=== PATIENT | male | born 1995 | race African-American/Black ===

== ENCOUNTER 2016-10-23 10:58 | Emergency (ER) | payer SELFPAY ==
[~2016-10-23] VITALS: Ht 180.3 cm; Wt 100.0 kg
[~2016-10-23 10:58] MED LIST: PENI500T PO
[2016-10-23 10:59] VITALS: BP 139/70; PULSE 88; RESP 20; TEMP 98.1; O2SAT 97
--- NOTE | 2016-10-23 11:24 | PD ---
HPI Chief Complaint: ENT Complaint Time Seen by Provider: 11:22 Travel History International Travel<30 days: No Contact w/Intl Traveler<30days: No Traveled to known affect area: No History of Present Illness HPI 21-year-old male presents to the emergency department stating that he may have contracted in his right ear. He states he feels some slight pressure in his right ear. He does state that he uses Q-tips this does not recall if any of the Q-tip got stuck in his ear. The patient denies any pain or drainage. No fevers or chills. Patient denies any other complaints at this time. He has no chronic medical problems and takes no prescribed medications. History Social History Alcohol Use: Yes Tobacco Use: Yes Allergies-Medications (Allergen,Severity, Reaction): Coded Allergies: No Known Allergies (Unverified , 10/23/16) Reported Meds & Prescriptions Reported Meds & Active Scripts Active Penicillin V Potassium 500 Mg Tab 500 Mg PO Q8H 10 Days Review of Systems Except as stated in HPI: all other systems reviewed are Neg Physical Exam Narrative GENERAL: Well-developed well-nourished male patient, ambulatory. Afebrile. SKIN: Warm and dry. HEAD: Normocephalic. Atraumatic. ENT: Mucosa pink and moist. No erythema or exudates. No uvular edema. No uvular , palatal, or tonsillar deviation. Airway patent. Nasal turbinates appear normal without nasal blood, purulent drainage or septal hematoma. Bilateral tympanic membranes are clear without erythema or perforation. EYES: No scleral icterus. No injection or drainage. NECK: Supple, trachea midline. No JVD or lymphadenopathy. CARDIOVASCULAR: Regular rate and rhythm without murmurs, gallops, or rubs. RESPIRATORY: Breath sounds equal bilaterally. No accessory muscle use. Lungs sounds are clear to auscultation. MUSCULOSKELETAL: No cyanosis, or edema. Data Data Last Documented VS Vital Signs Date Time Temp Pulse Resp B/P Pulse Ox O2 Delivery O2 Flow Rate FiO2 10/23/16 10:59 98.1 88 20 139/70 97 Room Air MDM Medical Screen Exam Complete: Yes Emergency Medical Condition: No Differential Diagnosis Normal exam Narrative Course 21-year-old male presents to the emergency department believing he may have, and in his right ear. However, upon physical exam, bilateral ear canals and tympanic membranes are clear. There is no evidence of foreign body. I reassured the patient that there is no foreign body in his right ear. He verbalizes understanding. No emergent condition is identified on today's exam. A medical screening exam was performed: At the time of evaluation the presenting medical condition was determined not to be of an emergent nature. The patient was given the option of receiving additional care, but declined. Patient was given options for additional community resources from which to obtain care. The Patient Has Been advised to seek medical attention for their presenting complaint. The patient has been advised to return to the ER at any time if an emergent condition develops. Primary Impression: Encounter for medical screening examination Condition: Stable JohanSendy ELIU Oct 23, 2016 11:24
== END 2016-10-23 11:30 | disposition left against medical advice (07) ==
LOC: NEPB 10:58
DX: H92.01 Otalgia, right ear (principal)
CPT/HCPCS: 99281

== ENCOUNTER 2017-07-01 14:14 | Emergency (ER) | payer OTHER ==
[~2017-07-01] VITALS: Ht 180.3 cm; Wt 113.5 kg
[2017-07-01 14:16] VITALS: BP 137/80; PULSE 47; RESP 14; TEMP 98.4; O2SAT 98
--- NOTE | 2017-07-01 14:22 | PD ---
Physical Exam Date Seen by Provider: Jul 01, 2017 Time Seen by Provider: 14:20 Narrative 22-year-old Afro-[place] male presents to emergency Department with sudden onset nausea and vomiting since 11:00 last night. Patient states "he can't keep down". Patient is complaining of abdominal pain of 8 out of 10. He states decreased urinary output and generalized weakness and mild dizziness. He denies fever or chills. No diarrhea. No known drug allergies Vital signs are stable. Patient is awaiting medical placement. Data Data Last Documented VS Vital Signs Date Time Temp Pulse Resp B/P (MAP) Pulse Ox O2 Delivery O2 Flow Rate FiO2 07/01/17 14:16 98.4 47 14 137/80 (99) 98 MDM Medical Record Reviewed: Yes Supervised Visit with KASSY: Yes Condition: Stable Yeison Reilly Jul 01, 2017 14:21
[2017-07-01 15:21] LABS: AUTOMATED NEUTROPHIL # 9.6 TH/MM3 (1.8-7.7); BASOPHIL % 0.3 % (0.0-2.0); HEMATOCRIT 43.6 % (39.0-51.0); HEMO FLAGS DIFF FINAL; LYMPH % 15.8 % (9.0-44.0); LYMPHOCYTE # 1.9 TH/MM3 (1.0-4.8); MEAN CELL VOLUME 86.2 FL (80.0-100.0); MEAN CORPUSCULAR HEMOGLOBIN 28.8 PG (27.0-34.0); MEAN CORPUSCULAR HGB CONC 33.4 % (32.0-36.0); MONO % 4.3 % (0.0-8.0); NEUT % 79.6 % (16.0-70.0); PLATELET COUNT 273 TH/MM3 (150-450); RED BLOOD COUNT 5.06 MIL/MM3 (4.50-5.90); RED CELL DISTRIBUTION WIDTH 14.1 % (11.6-17.2)
[2017-07-01 15:29] LABS: BACTERIA, URINE RARE /hpf; BLOOD, URINE NEG (NEG); COMMENT (UR) CULT NOT INDICATED; CULTURE IF INDICATED CULT NOT INDICATED; GLUCOSE,URINE NEG (NEG); KETONE, URINE 10 mg/dL (NEG); MUCUS URINE MANY /lpf (OCC); NITRITE,URINE NEG (NEG); SQUAMOUS EPITHELIAL CELL URINE 2 /hpf (0-5); URINE COLOR YELLOW (YELLW/STRAW)
[2017-07-01 15:52] LABS: ALT (GPT) 27 U/L (12-78); ANION GAP 9 MEQ/L (5-15); AST (GOT) 8 U/L (15-37); BICARBONATE 23.1 MEQ/L (21.0-32.0); BLOOD UREA NITROGEN 9 MG/DL (7-18); CHLORIDE 106 MEQ/L (98-107); GLOMERULAR FILTRATION RATE 125 ML/MIN (>89); SODIUM (NA) 138 MEQ/L (136-145)
[2017-07-01 15:54] LABS: ALKALINE PHOSPHATASE 83 U/L (45-117); TOTAL BILIRUBIN ADULT 0.3 MG/DL (0.2-1.0)
[2017-07-01] MEDS ORDERED: SODIUM CHLOR 0.9% 1000 ML INJ 1,000 ML IV ONE (17:04)
[2017-07-01] MEDS ORDERED: ONDANSETRON HCL 4 MG/2 ML VIAL IVP ONE (17:15)
[2017-07-01] MEDS: SODIUM CHLORIDE 0.9% FLUSH 10 ML FLUSH IVF PRN ×2 (17:20→18:37)
[2017-07-01 17:21] VITALS: TEMP 98.8
--- NOTE | 2017-07-01 17:28 | PD ---
HPI Chief Complaint: GI Complaint Time Seen by Provider: 17:05 Travel History International Travel<30 days: No Contact w/Intl Traveler<30days: No Traveled to known affect area: No History of Present Illness HPI Patient is a 22-year-old male presented to the emergency room evaluation of nausea vomiting. Patient states he's been unable to keep down any food or fluids, the vomiting started at 11 PM last night and he reports vomiting anytime he eats or drinks anything however he was able to keep down Pepto- Bismol at 11 AM this morning. Patient denies any contaminated food, sick contacts. He states his abdomen is tender, he denies any constipation, diarrhea , chest pain, shortness breath, fever, chills. PFSH Past Medical History Medical History: Denies Significant Hx Immunizations Current: No Social History Alcohol Use: Yes Tobacco Use: Yes Substance Use: No Allergies-Medications (Allergen,Severity, Reaction): Coded Allergies: No Known Allergies (Unverified , 07/01/17) Reported Meds & Prescriptions Reported Meds & Active Scripts Active No Active Prescriptions or Reported Medications Review of Systems Except as stated in HPI: all other systems reviewed are Neg General / Constitutional: No: Fever HENT: No: Headaches Cardiovascular: No: Chest Pain or Discomfort Respiratory: No: Shortness of Breath Gastrointestinal: Positive: Nausea, Vomiting Genitourinary: No: Dysuria Musculoskeletal: No: Myalgias Neurologic: Positive: Weakness, No: Dizziness, Focal Abnormalities, Change in Mentation Physical Exam Narrative GENERAL: Well-appearing, well-developed, alert male. Resting comfortably in no acute distress. SKIN: Warm and dry. HEAD: Atraumatic. Normocephalic. EYES: Pupils equal and round. No scleral icterus. No injection or drainage. ENT: No nasal bleeding or discharge. Mucous membranes pink and moist. NECK: Trachea midline. No JVD. CARDIOVASCULAR: Regular rate and rhythm. RESPIRATORY: No accessory muscle use. Clear to auscultation. Breath sounds equal bilaterally. GASTROINTESTINAL: Abdomen soft, non-tender, nondistended. Hepatic and splenic margins not palpable. No rebound, no guarding, positive bowel sounds. MUSCULOSKELETAL: Extremities without clubbing, cyanosis, or edema. No obvious deformities. NEUROLOGICAL: Awake and alert. No obvious cranial nerve deficits. Motor grossly within normal limits. Five out of 5 muscle strength in the arms and legs. Normal speech. PSYCHIATRIC: Appropriate mood and affect; insight and judgment normal. Data Data Last Documented VS Vital Signs Date Time Temp Pulse Resp B/P (MAP) Pulse Ox O2 Delivery O2 Flow Rate FiO2 07/01/17 18:00 99.3 80 15 100 Room Air Orders Orders Complete Blood Count With Diff (07/01/17 14:23) Comprehensive Metabolic Panel (07/01/17 14:23) Lipase (07/01/17 14:23) Lactic Acid (07/01/17 14:23) Urinalysis - C+S If Indicated (07/01/17 14:23) Iv Access Insert/Monitor (07/01/17 17:04) Ondansetron Inj (Zofran Inj) (07/01/17 17:15) Sodium Chlor 0.9% 1000 Ml Inj (Ns 1000 M (07/01/17 17:04) Sodium Chloride 0.9% Flush (Ns Flush) (07/01/17 17:15) Diphenhydramine Inj (Benadryl Inj) (07/01/17 18:30) Prochlorperazine Inj (Compazine Inj) (07/01/17 18:30) Labs Laboratory Tests Test 07/01/17 14:30 White Blood Count 12.0 TH/MM3 Red Blood Count 5.06 MIL/MM3 Hemoglobin 14.6 GM/DL Hematocrit 43.6 % Mean Corpuscular Volume 86.2 FL Mean Corpuscular Hemoglobin 28.8 PG Mean Corpuscular Hemoglobin Concent 33.4 % Red Cell Distribution Width 14.1 % Platelet Count 273 TH/MM3 Mean Platelet Volume 8.8 FL Neutrophils (%) (Auto) 79.6 % Lymphocytes (%) (Auto) 15.8 % Monocytes (%) (Auto) 4.3 % Eosinophils (%) (Auto) 0.0 % Basophils (%) (Auto) 0.3 % Neutrophils # (Auto) 9.6 TH/MM3 Lymphocytes # (Auto) 1.9 TH/MM3 Monocytes # (Auto) 0.5 TH/MM3 Eosinophils # (Auto) 0.0 TH/MM3 Basophils # (Auto) 0.0 TH/MM3 CBC Comment DIFF FINAL Differential Comment Urine Color YELLOW Urine Turbidity CLEAR Urine pH 6.0 Urine Specific [place] 1.043 Urine Protein 30 mg/dL Urine Glucose (UA) NEG mg/dL Urine Ketones 10 mg/dL Urine Occult Blood NEG Urine Nitrite NEG Urine Bilirubin NEG Urine Urobilinogen LESS THAN 2.0 MG/DL Urine Leukocyte Esterase NEG Urine RBC 3 /hpf Urine WBC 5 /hpf Urine Squamous Epithelial Cells 2 /hpf Urine Bacteria RARE /hpf Urine Mucus MANY /lpf Microscopic Urinalysis Comment CULT NOT INDICATED Blood Urea Nitrogen 9 MG/DL Creatinine 0.91 MG/DL Random Glucose 117 MG/DL Total Protein 8.3 GM/DL Albumin 4.2 GM/DL Calcium Level 9.3 MG/DL Alkaline Phosphatase 83 U/L Aspartate Amino Transf (AST/SGOT) 8 U/L Alanine Aminotransferase (ALT/SGPT) 27 U/L Total Bilirubin 0.3 MG/DL Sodium Level 138 MEQ/L Potassium Level 4.0 MEQ/L Chloride Level 106 MEQ/L Carbon Dioxide Level 23.1 MEQ/L Anion Gap 9 MEQ/L Estimat Glomerular Filtration Rate 125 ML/MIN Lactic Acid Level 1.1 mmol/L Lipase 70 U/L MDM Medical Decision Making Medical Screen Exam Complete: Yes Emergency Medical Condition: Yes Interpretation(s) Vital Signs Date Time Temp Pulse Resp B/P (MAP) Pulse Ox O2 Delivery O2 Flow Rate FiO2 07/01/17 17:21 98.8 07/01/17 14:16 98.4 47 14 137/80 (99) 98 Differential Diagnosis Gastroenteritis versus metabolic abnormality versus urinary tract infection versus other Narrative Course Patient is a 22-year-old male that presented to the emergency department evaluation of nausea and vomiting that started at 11 PM last night. Patient appears well, his vital signs are stable. Labs ordered and pending. Abdominal exam is benign, we'll defer imaging at this time. Patient will be given IV hydration and antiemetics. Patient was reassessed at 1900 was observed sleeping, there was a friend at bedside. 1950 abrasion reassessed, he he was easily aroused. He reports feeling better, he has no complaints of abdominal pain at this time. He was encouraged to maintain a bland, easy to digest diet, increasing as tolerated. He was encouraged to take nausea medicine as needed and as directed and increase fluid intake. He was given strict return precautions regarding abdominal pain. Patient is reliable regarding return to emergency department. Patient is stable for discharge. Diagnosis Primary Impression: Nausea and vomiting Qualified Codes: R11.2 - Nausea with vomiting, unspecified Referrals: Primary Care Physician 1 day Patient Instructions: Acute Nausea and Vomiting (ED), General Instructions Additional Instructions: Maintain a bland, easy to digest diet, increase fluid intake Follow-up with your doctor Return to emergency department for any new or worsening symptoms Med/Other Pt SpecificInfo: Prescription(s) given Scripts Ondansetron Odt (Zofran Odt) 4 Mg Tab 4 MG SL Q6HR Y for Nausea/Vomiting, #12 TAB 0 Refills Prov: Margi Nevarez 07/01/17 Disposition: 01 DISCHARGE HOME Condition: Stable Margi Nevarez Jul 01, 2017 17:28
[2017-07-01 18:00] VITALS: PULSE 80; RESP 15; TEMP 99.3; O2SAT 100
[2017-07-01] MEDS ORDERED: diphenhydrAMINE HCL 50 MG/ML VIAL IV PUSH ONE (18:30)
[2017-07-01] MEDS ORDERED: PROCHLORPERAZINE INJ 10 MG/2 ML VIAL IV PUSH ONE (18:30)
[2017-07-01] MEDS ORDERED: ZOFR4TAB3 SL (20:00)
== END 2017-07-01 20:24 | disposition home or self-care (01) ==
LOC: NEPD 14:14
DX: R11.2 Nausea with vomiting, unspecified (principal); Z72.0 Tobacco use
CPT/HCPCS: 80053; 81001; 83605; 83690; 85025; 96361; 96374; 96375; 99284; J0780; J1200; J2405; J7030

== ENCOUNTER 2017-08-26 07:01 | Emergency (ER) | payer OTHER ==
[~2017-08-26] VITALS: Ht 180.3 cm; Wt 109.0 kg
[~2017-08-26 07:01] MED LIST changes: -PENI500T PO; +ZOFR4TAB3 SL
[2017-08-26 07:03] VITALS: BP 140/80; PULSE 55; RESP 16; TEMP 99.1; O2SAT 97
[2017-08-26] MEDS ORDERED: SODIUM CHLOR 0.9% 1000 ML INJ 1,000 ML IV ONE ×2 (07:30→08:45)
[2017-08-26] MEDS ORDERED: ONDANSETRON HCL 4 MG/2 ML VIAL IV PUSH ONE (07:30)
[2017-08-26] MEDS ORDERED: DICYCLOMINE HCL 20 MG/2 ML VIAL IM ONE (07:30)
--- NOTE | 2017-08-26 07:30 | PD ---
HPI Chief Complaint: GI Complaint Time Seen by Provider: 07:12 Travel History International Travel<30 days: No Contact w/Intl Traveler<30days: No Traveled to known affect area: No History of Present Illness HPI Patient is a 22-year-old male presents emergency department for evaluation of generalized abdominal cramping nausea vomiting and diarrhea for the past week. Patient states she was seen at [facility] had place blood work CAT scan of his abdomen although which was negative, he was started on Flagyl and Zofran , he was just starting to feel better with this morning the cramping returned. No family history of Crohn's disease including intolerance. Patient denies any blood in the stool blood in the emesis or bile in the emesis. States symptoms are moderate to severe, generalized, nonradiating, cramping in nature. PFSH Past Medical History Immunizations Current: No Influenza Vaccination: No Social History Alcohol Use: Yes (occasionally) Tobacco Use: No Substance Use: Yes (THC daily) Allergies-Medications (Allergen,Severity, Reaction): Coded Allergies: No Known Allergies (Unverified , 07/01/17) Reported Meds & Prescriptions Reported Meds & Active Scripts Active Phenergan (Promethazine HCl) 25 Mg Tablet 25 Mg PO Q6H PRN Bentyl (Dicyclomine HCl) 10 Mg Cap 10 Mg PO TID PRN Zofran Odt (Ondansetron Odt) 4 Mg Tab 4 Mg SL Q6HR PRN Review of Systems Except as stated in HPI: all other systems reviewed are Neg Physical Exam Narrative GENERAL: Well-developed well-nourished, overweight appears mildly uncomfortable.. SKIN: Focused skin assessment warm/dry. HEAD: Atraumatic. Normocephalic. EYES: Pupils equal and round. No scleral icterus. No injection or drainage. ENT: No nasal bleeding or discharge. Mucous membranes pink and moist. NECK: Trachea midline. No JVD. CARDIOVASCULAR: Regular rate and rhythm. No murmur appreciated. RESPIRATORY: No accessory muscle use. Clear to auscultation. Breath sounds equal bilaterally. GASTROINTESTINAL: Abdomen soft, non-tender, nondistended. No rebound no percussive tenderness. No CVA tenderness. No masses felt. Hepatic and splenic margins not palpable. MUSCULOSKELETAL: No obvious deformities. No clubbing. No cyanosis. No edema. NEUROLOGICAL: Awake and alert. No obvious cranial nerve deficits. Motor grossly within normal limits. Normal speech. PSYCHIATRIC: Appropriate mood and affect; insight and judgment normal. Data Data Last Documented VS Vital Signs Date Time Temp Pulse Resp B/P (MAP) Pulse Ox O2 Delivery O2 Flow Rate FiO2 08/26/17 08:35 49 18 117/61 (79) 98 Partial Rebreather 08/26/17 07:03 99.1 Orders Orders Ondansetron Inj (Zofran Inj) (08/26/17 07:30) Sodium Chlor 0.9% 1000 Ml Inj (Ns 1000 M (08/26/17 07:30) Basic Metabolic Panel (Bmp) (08/26/17 07:22) Complete Blood Count With Diff (08/26/17 07:22) Dicyclomine Inj (Bentyl Inj) (08/26/17 07:30) Hepatic Functional Panel (08/26/17 07:28) Promethazine Inj (Phenergan Inj) (08/26/17 08:45) Sodium Chlor 0.9% 1000 Ml Inj (Ns 1000 M (08/26/17 08:45) Ed Discharge Order (08/26/17 09:44) Lorazepam Inj (Ativan Inj) (08/26/17 10:15) Metoclopramide Inj (Reglan Inj) (08/26/17 10:15) Labs Laboratory Tests Test 08/26/17 07:26 White Blood Count 8.9 TH/MM3 Red Blood Count 4.98 MIL/MM3 Hemoglobin 14.6 GM/DL Hematocrit 42.4 % Mean Corpuscular Volume 85.1 FL Mean Corpuscular Hemoglobin 29.3 PG Mean Corpuscular Hemoglobin Concent 34.5 % Red Cell Distribution Width 14.1 % Platelet Count 312 TH/MM3 Mean Platelet Volume 8.3 FL Neutrophils (%) (Auto) 64.9 % Lymphocytes (%) (Auto) 27.4 % Monocytes (%) (Auto) 7.1 % Eosinophils (%) (Auto) 0.3 % Basophils (%) (Auto) 0.3 % Neutrophils # (Auto) 5.8 TH/MM3 Lymphocytes # (Auto) 2.4 TH/MM3 Monocytes # (Auto) 0.6 TH/MM3 Eosinophils # (Auto) 0.0 TH/MM3 Basophils # (Auto) 0.0 TH/MM3 CBC Comment DIFF FINAL Differential Comment Blood Urea Nitrogen 11 MG/DL Creatinine 1.25 MG/DL Random Glucose 106 MG/DL Calcium Level 8.8 MG/DL Sodium Level 137 MEQ/L Potassium Level 3.5 MEQ/L Chloride Level 104 MEQ/L Carbon Dioxide Level 22.1 MEQ/L Anion Gap 11 MEQ/L Estimat Glomerular Filtration Rate 87 ML/MIN Total Bilirubin 0.3 MG/DL Direct Bilirubin 0.1 MG/DL Indirect Bilirubin 0.2 MG/DL Aspartate Amino Transf (AST/SGOT) 19 U/L Alanine Aminotransferase (ALT/SGPT) 31 U/L Alkaline Phosphatase 87 U/L Total Protein 7.5 GM/DL Albumin 3.8 GM/DL [facility] Medical Decision Making Medical Screen Exam Complete: Yes Emergency Medical Condition: Yes Differential Diagnosis Gastritis, gastritis, Crohn's disease, gluten sensitivity, pancreatitis. Narrative Course patient roomed emergency department given Zofran continues to have nausea and feeling uncomfortable, Phenergan and had little relief as well but he felt well enough to go home. He was set up for discharge and then had an emesis containing a moderate amount of blood. He is low risk for life-threatening upper GI bleeding. He was given Ativan as well as additional nausea medication and on second reassessment is sleeping. The family member arrived and inquired about the possibility for admission and endoscopy. Given the fact that his taken multiple antinausea medicines to control him he was offered admission but he would prefer to go home. He is a student in college here in [facility] and his primary care physician is in [place] and I recommended close follow-up with either the clinic at with him troponin or his primary care physician a ladder preferable. I discussed symptomatic management with him bland diet and return to ED criteria. He is stable for discharge. Diagnosis Primary Impression: Nausea & vomiting Qualified Codes: R11.2 - Nausea with vomiting, unspecified Additional Impression: Abdominal cramping Referrals: Damion Álvarez MD Med/Other Pt SpecificInfo: Prescription(s) given Scripts Promethazine (Phenergan) 25 Mg Tablet 25 MG PO Q6H Y for NAUSEA OR VOMITING, #20 TAB 0 Refills Prov: Alberto Baltazar MD 08/26/17 Dicyclomine (Bentyl) 10 Mg Cap 10 MG PO TID Y for Bowel Management, #20 CAP 0 Refills Prov: Alberto Baltazar MD 08/26/17 Disposition: 01 DISCHARGE HOME Condition: Stable Alberto Baltazar MD Aug 26, 2017 07:30
[2017-08-26 07:54] LABS: AUTOMATED NEUTROPHIL # 5.8 TH/MM3 (1.8-7.7); BASOPHIL % 0.3 % (0.0-2.0); EOSINOPHIL % 0.3 % (0.0-4.0); HEMATOCRIT 42.4 % (39.0-51.0); HEMO FLAGS DIFF FINAL; LYMPH % 27.4 % (9.0-44.0); LYMPHOCYTE # 2.4 TH/MM3 (1.0-4.8); MEAN CELL VOLUME 85.1 FL (80.0-100.0); MEAN CORPUSCULAR HEMOGLOBIN 29.3 PG (27.0-34.0); MEAN CORPUSCULAR HGB CONC 34.5 % (32.0-36.0); MONO % 7.1 % (0.0-8.0); NEUT % 64.9 % (16.0-70.0); PLATELET COUNT 312 TH/MM3 (150-450); RED BLOOD COUNT 4.98 MIL/MM3 (4.50-5.90); RED CELL DISTRIBUTION WIDTH 14.1 % (11.6-17.2); WHITE BLOOD COUNT 8.9 TH/MM3 (4.0-11.0)
[2017-08-26 08:04] LABS: BICARBONATE 22.1 MEQ/L (21.0-32.0); POTASSIUM 3.5 MEQ/L (3.5-5.1)
[2017-08-26 08:35] VITALS: BP 117/61; PULSE 49; RESP 18; O2SAT 98
[2017-08-26] MEDS ORDERED: PROMETHAZINE INJ 25 MG/ML VIAL IM ONE (08:45)
[2017-08-26 08:46] LABS: INDIRECT BILIRUBIN 0.2 MG/DL (0.0-0.8); TOTAL BILIRUBIN ADULT 0.3 MG/DL (0.2-1.0)
[2017-08-26] MEDS ORDERED: DICY10 PO ×2 (09:43→11:14)
[2017-08-26] MEDS ORDERED: PROM25TA10 PO ×2 (09:43→11:14)
[2017-08-26] MEDS ORDERED: LORazepam 2 MG/ML VIAL IV PUSH ONE (10:15)
[2017-08-26] MEDS ORDERED: METOCLOPRAMIDE HCL 10 MG/2 ML VIAL IV PUSH ONE (10:15)
== END 2017-08-26 12:20 | disposition home or self-care (01) ==
LOC: NEPC 07:01
DX: R11.2 Nausea with vomiting, unspecified (principal); R10.9 Unspecified abdominal pain; Z79.899 Other long term (current) drug therapy
CPT/HCPCS: 80048; 80076; 85025; 96372; 96374; 96375; 99284; J0500; J2060; J2405; J2550; J2765; J7030

== ENCOUNTER 2017-09-27 12:29 | Emergency (ER) | payer OTHER ==
[~2017-09-27] VITALS: Ht 180.3 cm; Wt 109.1 kg
[~2017-09-27 12:29] MED LIST changes: +DICY10 PO; +PROM25TA10 PO
[2017-09-27 12:30] VITALS: BP 145/83; PULSE 61; RESP 16; TEMP 98.8; O2SAT 100
[2017-09-27 13:05] LABS: AMORPHOUS SEDIMENT, URINE RARE; BACTERIA, URINE RARE /hpf; BILIRUBIN, URINE NEG (NEG); BLOOD, URINE NEG (NEG); GLUCOSE,URINE NEG (NEG); KETONE, URINE NEG (NEG); MUCUS URINE FEW /lpf (OCC); NITRITE,URINE NEG (NEG); PH, URINE 8.5 (5.0-8.5); SQUAMOUS EPITHELIAL CELL URINE 1 /hpf (0-5); URINE COLOR YELLOW (YELLW/STRAW); URINE LEUKOCYTE ESTERASE NEG (NEG)
[2017-09-27 13:06] LABS: AUTOMATED NEUTROPHIL # 7.4 TH/MM3 (1.8-7.7); BASOPHIL % 0.5 % (0.0-2.0); EOSINOPHIL % 0.1 % (0.0-4.0); HEMATOCRIT 43.1 % (39.0-51.0); HEMOGLOBIN 14.6 GM/DL (13.0-17.0); LYMPH % 20.1 % (9.0-44.0); MEAN CELL VOLUME 86.3 FL (80.0-100.0); MEAN CORPUSCULAR HEMOGLOBIN 29.2 PG (27.0-34.0); MEAN CORPUSCULAR HGB CONC 33.8 % (32.0-36.0); MEAN PLATELET VOLUME 8.1 FL (7.0-11.0); MONOCYTE # 0.4 TH/MM3 (0-0.9); NEUT % 75.3 % (16.0-70.0); PLATELET COUNT 314 TH/MM3 (150-450); WHITE BLOOD COUNT 9.8 TH/MM3 (4.0-11.0)
[2017-09-27 13:16] LABS: ALBUMIN 4.2 GM/DL (3.4-5.0); ALT (GPT) 23 U/L (12-78); AST (GOT) 10 U/L (15-37); BICARBONATE 24.7 MEQ/L (21.0-32.0); BLOOD UREA NITROGEN 8 MG/DL (7-18); CALCIUM 9.1 MG/DL (8.5-10.1); CHLORIDE 109 MEQ/L (98-107); GLOMERULAR FILTRATION RATE 112 ML/MIN (>89); GLUCOSE,RANDOM 116 MG/DL (74-106); LIPASE 64 U/L (73-393); SODIUM (NA) 139 MEQ/L (136-145)
[2017-09-27 13:18] LABS: ALKALINE PHOSPHATASE 75 U/L (45-117); TOTAL BILIRUBIN ADULT 0.2 MG/DL (0.2-1.0); TOTAL PROTEIN 7.8 GM/DL (6.4-8.2)
--- NOTE | 2017-09-27 14:13 | PD ---
HPI Chief Complaint: GI Complaint Time Seen by Provider: 14:03 Travel History International Travel<30 days: No Contact w/Intl Traveler<30days: No Traveled to known affect area: No History of Present Illness HPI 22-year-old male presents to the emergency Department with complaint of nausea, vomiting, and chills since 7 AM this morning. Unknown fever. Denies abdominal pain. Denies dysuria, change in stool. Denies diarrhea. Says he was seen here about a month ago for the same complaint but was having abdominal cramping at that time. He said he ate beef the day before he was seen last and he ate beef yesterday so he is associating his symptoms from eating beef. One else with similar symptoms. Denies blood in his vomit. Says his vomiting is minimal and bile appearing. Took some promethazine that he had left over from his last visit for symptom management. No known allergies. Primary care provider is in [place]. Denies significant past medical history. Has no other medical complaints. No other modifying factors or associated signs and symptoms. [facility] Past Medical History Immunizations Current: No Social History Alcohol Use: Yes (occasionally) Tobacco Use: No Substance Use: Yes (THC daily) Allergies-Medications (Allergen,Severity, Reaction): Coded Allergies: No Known Allergies (Unverified Adverse Reaction, Unknown, 09/27/17) Reported Meds & Prescriptions Reported Meds & Active Scripts Active Zofran Odt (Ondansetron Odt) 4 Mg Tab 4 Mg SL Q8HR PRN Review of Systems Except as stated in HPI: all other systems reviewed are Neg Physical Exam Narrative GENERAL: Well-nourished, well-developed white male patient, in no acute distress SKIN: Warm and dry. HEAD: Atraumatic. Normocephalic. EYES: Pupils equal and round. No scleral icterus. No injection or drainage. ENT: Mucosa pink and moist. Airway patent. NECK: Trachea midline. CARDIOVASCULAR: Regular rate and rhythm. No murmur appreciated. RESPIRATORY: No accessory muscle use. Breath sounds clear and equal bilaterally. GASTROINTESTINAL: Abdomen soft, non-tender, nondistended. All sounds active 4 quadrants. Nonrigid. No guarding. MUSCULOSKELETAL: No obvious deformities. No clubbing. No cyanosis. No edema. NEUROLOGICAL: Awake and alert. Oriented 3. No obvious cranial nerve deficits. Motor grossly within normal limits. Normal speech. PSYCHIATRIC: Appropriate mood and affect; insight and judgment normal. Data Data Last Documented VS Vital Signs Date Time Temp Pulse Resp B/P (MAP) Pulse Ox O2 Delivery O2 Flow Rate FiO2 09/27/17 12:30 98.8 61 16 145/83 (103) 100 Room Air Orders Orders Complete Blood Count With Diff (09/27/17 12:35) Comprehensive Metabolic Panel (09/27/17 12:35) Urinalysis - C+S If Indicated (09/27/17 12:35) Lipase (09/27/17 12:35) Ondansetron Odt (Zofran Odt) (09/27/17 14:15) Ed Discharge Order (09/27/17 15:53) Labs Laboratory Tests Test 09/27/17 12:40 09/27/17 12:45 Urine Color YELLOW Urine Turbidity HAZY Urine pH 8.5 Urine Specific [place] 1.025 Urine Protein 30 mg/dL Urine Glucose (UA) NEG mg/dL Urine Ketones NEG mg/dL Urine Occult Blood NEG Urine Nitrite NEG Urine Bilirubin NEG Urine Urobilinogen LESS THAN 2.0 MG/DL Urine Leukocyte Esterase NEG Urine RBC 1 /hpf Urine WBC 3 /hpf Urine Squamous Epithelial Cells 1 /hpf Urine Amorphous Sediment RARE Urine Bacteria RARE /hpf Urine Mucus FEW /lpf Microscopic Urinalysis Comment CULT NOT INDICATED White Blood Count 9.8 TH/MM3 Red Blood Count 5.00 MIL/MM3 Hemoglobin 14.6 GM/DL Hematocrit 43.1 % Mean Corpuscular Volume 86.3 FL Mean Corpuscular Hemoglobin 29.2 PG Mean Corpuscular Hemoglobin Concent 33.8 % Red Cell Distribution Width 14.0 % Platelet Count 314 TH/MM3 Mean Platelet Volume 8.1 FL Neutrophils (%) (Auto) 75.3 % Lymphocytes (%) (Auto) 20.1 % Monocytes (%) (Auto) 4.0 % Eosinophils (%) (Auto) 0.1 % Basophils (%) (Auto) 0.5 % Neutrophils # (Auto) 7.4 TH/MM3 Lymphocytes # (Auto) 2.0 TH/MM3 Monocytes # (Auto) 0.4 TH/MM3 Eosinophils # (Auto) 0.0 TH/MM3 Basophils # (Auto) 0.0 TH/MM3 CBC Comment DIFF FINAL Differential Comment Blood Urea Nitrogen 8 MG/DL Creatinine 1.00 MG/DL Random Glucose 116 MG/DL Total Protein 7.8 GM/DL Albumin 4.2 GM/DL Calcium Level 9.1 MG/DL Alkaline Phosphatase 75 U/L Aspartate Amino Transf (AST/SGOT) 10 U/L Alanine Aminotransferase (ALT/SGPT) 23 U/L Total Bilirubin 0.2 MG/DL Sodium Level 139 MEQ/L Potassium Level 4.1 MEQ/L Chloride Level 109 MEQ/L Carbon Dioxide Level 24.7 MEQ/L Anion Gap 5 MEQ/L Estimat Glomerular Filtration Rate 112 ML/MIN Lipase 64 U/L MDM Medical Decision Making Medical Screen Exam Complete: Yes Emergency Medical Condition: Yes Medical Record Reviewed: Yes Differential Diagnosis Gastritis, gastroenteritis, nausea and vomiting Narrative Course 22-year-old male with nausea and vomiting that started this morning at approximately 7 AM. Patient is afebrile and nontoxic-appearing. Unknown fever at home. He has seen here on August 26 for a similar complaint that he was seen at [facility]. Patient denies abdominal pain. CBC, CMP, lipase, urinalysis are all unremarkable. I will administer Zofran and have the patient do a PO challenge. 1549: Patient has tolerated water and Gatorade without continued vomiting. Zofran prescribed for home. Instructed patient to follow up with primary care provider. Patient verbalizes understanding and agreement with treatment plan. Patient is medically cleared and stable for discharge. Discussed reasons to return to the emergency department. Patient agrees with treatment plan. The patients vital signs are stable and the patient is stable for outpatient follow- up and treatment. Patient discharged home, stable and in no acute distress. Diagnosis Primary Impression: Nausea and vomiting Qualified Codes: R11.2 - Nausea with vomiting, unspecified Referrals: [facility] Primary Care Physician Patient Instructions: Acute Nausea and Vomiting (ED), General Instructions Departure Forms: School Release, Return to School Date: Sep 29, 2017 Tests/Procedures Additional Instructions: Increase fluid intake to maintain hydration [place] diet to include crackers, toast, rice, Jell-O, bananas until able to tolerate regular diet; avoid dairy, caffeine, alcohol Follow-up with primary care provider Follow-up with press operator meat Return immediately to emergency department with worsening of symptoms Med/Other Pt SpecificInfo: Prescription(s) given Scripts Ondansetron Odt (Zofran Odt) 4 Mg Tab 4 MG SL Q8HR Y for Nausea/Vomiting, #6 TAB 0 Refills Prov: Meghan Galan 09/27/17 Disposition: 01 DISCHARGE HOME Condition: Stable Meghan Galan Sep 27, 2017 14:13
[2017-09-27] MEDS ORDERED: ONDANSETRON ODT 4 MG TAB PO ONE (14:15)
[2017-09-27] MEDS ORDERED: ZOFR4TAB3 SL (15:53)
== END 2017-09-27 16:13 | disposition home or self-care (01) ==
LOC: NEPD 12:29
DX: R11.2 Nausea with vomiting, unspecified (principal); R10.9 Unspecified abdominal pain
CPT/HCPCS: 80053; 81001; 83690; 85025; 99283